=== PATIENT | male | born 1985 | race Caucasian/White ===

== ENCOUNTER 2018-02-22 21:17 | Emergency (ER) | payer OTHER ==
--- NOTE | 2018-02-22 22:16 | ER Document Report ---
ED General - General Mode of Arrival: Ambulatory Information source: Patient TRAVEL OUTSIDE OF THE [place] IN LAST 30 DAYS: No - General Chief Complaint: Rib Pain Stated Complaint: SIDE PAIN Time Seen by Provider: 02/22/18 21:57 Notes: 32 y.o male presents to the ED with LT sided rib pain of onset just prior to arrival. Pt reports that he was sick and coughing about 3 weeks ago and was given antibiotics and steroids for a cough and all his sx resolved but he was left very sore due to his coughing. Pt reports that tonight he had one very quick cough while driving and heard a pop. Pt states that before he coughed tonight he was already hurting to his LT sided lower ribs and initially after the cough he felt a relief but now is incredibly sore to the LT lower ribs. Pt reports that he is still feeling well since finishing the antibiotics other than the soreness he is experiencing. He denies any exacerbated pain with breathing or trouble breathing. (ARNEL CAMPUZANO) - Related Data Allergies/Adverse Reactions: No Known Allergies Allergy (Unverified 02/22/18 21:23) Past Medical History - General Information source: Patient - Social History Smoking Status: Current Every Day Smoker Smoking Education Provided: Yes Family History: Reviewed & Not Pertinent Review of Systems - Review of Systems Constitutional: See HPI, Recent illness EENT: No symptoms reported Cardiovascular: No symptoms reported Respiratory: See HPI, Cough. denies: Hurts to breathe, Short of breath Gastrointestinal: No symptoms reported Genitourinary: No symptoms reported Male Genitourinary: No symptoms reported Musculoskeletal: See HPI, Other - LT rib pain Skin: No symptoms reported Hematologic/Lymphatic: No symptoms reported Neurological/Psychological: No symptoms reported -: Yes All other systems reviewed and negative Physical Exam - Vital signs Vitals: Temp Pulse Resp BP Pulse Ox 98.1 F 110 H 18 151/106 H 98 02/22/18 21:21 02/22/18 21:21 02/22/18 21:21 02/22/18 21:21 02/22/18 21:21 - Notes Notes: Physical Exam: General: Alert, appears well. HEENT: Normocephalic. Atraumatic. PERRL. Extraocular movements intact. Oropharynx clear. Neck: Supple. Non-tender. Respiratory: No respiratory distress. Clear and equal breath sounds bilaterally. Cardiovascular: Regular rate and rhythm. TTP LT lateral chest wall, no contusions or step offs. Abdominal: Morbidly obese. Normal Inspection. Non-tender. No distension. Normal Bowel Sounds. Back: Non-tender. No deformity or step off. Extremities: Moves all four extremities. Upper extremities: Normal inspection. Normal ROM. Lower extremities: Normal inspection. No edema. Normal ROM. Normal ambulation. Neurological: Normal cognition. AAOx3. Normal speech. Psychological: Normal affect. Normal Mood. Skin: Warm. Dry. Normal color. (ARNEL CAMPUZANO) Course - Re-evaluation Re-evalutation: 02/22/18 22:21 Pt declines X-Ray. (ARNEL CAMPUZANO) 02/22/18 22:21 Patient well-appearing in no acute distress with mild tenderness to palpation of left lower lateral chest wall. Patient states that he coughed hard which caused this pain but the same time he has been having chronic pain and states that some of his pain that he has been experiencing was relieved with the cough. It appears that he is pulled either intercoastal musculature or shifted some of his floating ribs cartilage. Regardless, we will provide Toradol. He is asking for work excuse until the I explained that I can only give 2 days of work excuse. (JONATHAN AGUERO) - Vital Signs Vital signs: Temp Pulse Resp BP Pulse Ox 97.9 F 103 H 20 154/95 H 96 02/22/18 22:42 02/22/18 22:42 02/22/18 22:42 02/22/18 22:42 02/22/18 22:42 Discharge - Discharge Clinical Impression: Costochondritis Condition: Good Disposition: HOME, SELF-CARE Instructions: Costochondritis ([facility]) Prescriptions: Naproxen 500 mg PO BID PRN #20 tablet PRN Reason: Forms: Return to Work Scribe Attestation: 02/27/18 14:51 I personally performed the services described in the documentation, reviewed and edited the documentation which was dictated to the scribe in my presence, and it accurately records my words and actions. (JONATHAN AGUERO) Scribe Documentation - Scribe Written by Scribe:: Antonieta Mckeon 02/22/18 1913 acting as scribe for :: Carlos
[2018-02-22] MEDS ORDERED: KETOROLAC TROMETHAMINE 60 MG/2 ML SDV IM ONE (22:25)
[2018-02-22 22:42] VITALS: BP 154/95
== END 2018-02-22 22:42 | disposition home or self-care (01) ==
LOC: ER 21:17
DX: M94.0 Chondrocostal junction syndrome [Tietze] (principal); R07.81 Pleurodynia; R05 Cough; F17.200 Nicotine dependence, unspecified, uncomplicated
CPT/HCPCS: 99283; 96372; J1885